=== PATIENT | male | born 1975 | race Caucasian/White ===

== ENCOUNTER → 2017-03-30 | Outpatient (CLI) | payer MEDICAID ==
--- NOTE | 2017-03-30 16:57 | US ---
EXAMINATION TYPE: US thyroid st tissue head/neck DATE OF EXAM: 03/30/2017 COMPARISON: EXAMINATION TYPE: US thyroid st tissue head/neck DATE OF EXAM: 03/30/2017 COMPARISON: NONE CLINICAL HISTORY: R22.0 Localized swelling,mass,lump head. scanned area of concern, right neck under chin, where patient feels lump, it is in the general area o f the submandibular gland. There is a node seen measuring 1.7 x 0.7 1.1 cm with a fatty hilum, appear s normal. No other abnormality noted. IMPRESSION: Mildly prominent lymph node at the site of clinical concern.
== END | disposition home or self-care (01) ==
LOC: RADUSWWP 16:31
PROVIDERS: ATTEND Family Medicine
DX: R59.0 Localized enlarged lymph nodes (principal)
CPT/HCPCS: 76536